=== PATIENT | male | born 1960 | race Caucasian/White ===

== ENCOUNTER 2023-12-29 17:49 | Emergency (ER) | payer BC ==
[~2023-12-29] VITALS: Ht 172.7 cm; Wt 102.1 kg
[2023-12-29] MEDS ORDERED: CHILDREN'S ASPI81 MG (18:01)
[2023-12-29] MEDS ORDERED: NITROTAB0.4 MG (18:01)
[2023-12-29] MEDS ORDERED: TOPROL XL25 M1 (18:01)
[2023-12-29] MEDS ORDERED: CITALOPRAM20 MG/10 M (18:02)
[2023-12-29] MEDS ORDERED: LIPITOR40 M1 (18:02)
[2023-12-29] MEDS ORDERED: CLARITIN10 M1 (18:02)
[2023-12-29] MEDS ORDERED: ARNUITY ELLIPT50 MCG (18:02)
[2023-12-29] MEDS ORDERED: PLAVIX75 MG (18:02)
[2023-12-29] MEDS ORDERED: MITIGARE0.6 MG (18:03)
[2023-12-29] MEDS ORDERED: ESOMEPRAZOLE MA20 MG (18:03)
[2023-12-29] MEDS ORDERED: 0.9 % SODIUM CHLORIDE 1,000 ML IV SCH (18:30)
[2023-12-29] MEDS ORDERED: DILTIAZEM HCL 25 MG/5 ML VIAL IV ONE (18:30)
[2023-12-29 18:36] LABS: HEMATOCRIT 44.6 % (39.0-48.0); HEMOGLOBIN 15.5 g/dL (13-16.00); MEAN CELL VOLUME 85.5 fL (80.0-100.00); MEAN CORPUSCULAR HEMOGLOBIN 29.7 pg (27.00-32.0); MEAN CORPUSCULAR HGB CONC 34.7 g/dl (32.0-36.0); PLATELET COUNT 249 K/uL (150-450); RED BLOOD COUNT 5.22 M/uL (4.00-6.00)
[2023-12-29 18:50] LABS: INR 0.97; PARTIAL THROMBOPLASTIN TIME 27.2 SECONDS (22.0-34.0); PROTHROMBIN TIME 10.6 SECONDS (9.0-11.5)
[2023-12-29 19:23] LABS: ALBUMIN 3.9 gm/dL (3.4-5.0); BILIRUBIN TOTAL 1.01 mg/dL (0.3-1.2); GFR 75.96; GLOBULINA 3.6 G/DL (2.4-3.5); POTASSIUM 3.72 mEq/L (3.5-5.1); TOTAL PROTEIN 7.5 gm/dL (6.4-8.2)
[2023-12-29] MEDS ORDERED: TOPROL XL25 M1 PO (20:37)
== END 2023-12-29 23:01 | disposition home or self-care (01) ==
LOC: ER 17:51
PROVIDERS: General Practice
DX: I48.91 Unspecified atrial fibrillation (principal); I10 Essential (primary) hypertension